=== PATIENT | male | born 1930 | race Caucasian/White ===

== ENCOUNTER 2016-10-25 17:08 | Emergency (ER) | payer OTHER ==
[~2016-10-25] VITALS: Ht 180.3 cm; Wt 86.2 kg
[~2016-10-25 17:08] MED LIST: LORTAB; LORTAB PO; MOBIC7.5 MG PO; OXYCONTIN10 MG; PAIN MED; VITAMIN D1000 UNI1 PO; VITAMINC500 PO
[2016-10-25] MEDS ORDERED: IBUPROFEN 600600 M1 PO (20:22)
[2016-10-25] MEDS ORDERED: KEFLEX500 MG PO (20:22)
[2016-10-25] MEDS ORDERED: NORCO 5-325 TA1 EACH PO (20:22)
[2016-10-25 20:46] VITALS: BP 140/81
== END 2016-10-25 20:48 | disposition home or self-care (01) ==
LOC: ER 17:08
DX: S62.631A Displaced fracture of distal phalanx of left index finger, initial encounter for closed fracture (principal); S61.221A Laceration with foreign body of left index finger without damage to nail, initial encounter; M13.812 Other specified arthritis, left shoulder; F10.99 Alcohol use, unspecified with unspecified alcohol-induced disorder; W29.3XXA Contact with powered garden and outdoor hand tools and machinery, initial encounter; Y93.89 Activity, other specified; Y92.89 Other specified places as the place of occurrence of the external cause; Y99.8 Other external cause status

== ENCOUNTER 2017-07-15 10:27 | Inpatient (IN) | payer OTHER ==
[~2017-07-15] VITALS: Ht 180.3 cm; Wt 82.6 kg
[2017-07-15] VITALS (28 sets, daily range): BP systolic 95–185; BP diastolic 60–117
--- NOTE | ~2017-07-15 | CATHLAB ---
[facility] [address] [place] [address] INVASIVE PROCEDURE REPORT Name: PEACE SHAW Room #: 236-P [facility]#: [id number] Admission: 07/15/17 Attend Phys: Uche Pichardo Discharge: Date of : 34 Date of Service: 07/17/172214 Report #: [id number] THIS REPORT FOR: //name// APPROVED REPORT Study performed: 07/15/2017 16:03:47 Patient Details Patient Status: In-Patient Room #: The patient is a 86 year-old male Event Personnel Jose De Jesus Hylton Health Promotion Coordinator, Cee Poon CVT Monitor, Jo Magallon RTR, April Sparrow Wes RN, Mary Rodas Monitor Procedures Performed Severino Access - R femoral vein Temporary Pacemaker Lead Inserted [id number] TPI under fluoroscopic guidance Indication Complete heart block Procedure Narrative The patient was brought emergently to the Cardiac Catheterization Laboratory and was prepped and draped in a sterile manner. The Right Groin^ was infiltrated with 1% Lidocaine subcutaneous anesthesia. A PINNACLE 5FR Sheath #[id number] sheath was inserted into the RFV 5F Sheath^. Coronary angiography was performed using coronary diagnostic catheters. The patient tolerated the procedure well and there were no complications associated with the procedure. There was no hematoma. The right coronary SPECT and draped in usual sterile manner. Utilizing a modified Seldinger technique 5 Algerian sheath was then inserted and secured utilizing fluoroscopic guidance a 5 Algerian pacing electrode was advanced into the right ventricular apex and capture and sensing thresholds were verified. The sterile sheath was then covered the pacing wire and secured in place. 4 x 4 OpSite to utilize. Patient tolerated procedure well. There were no complications. Fluoro Time: 14.00 minutes Dose: DAP 1906.80 cGycm2 81 mGy Conclusion 1. Successful in insertion of a transvenous pacemaker into the right [facility] [place] [address] INVASIVE PROCEDURE REPORT Name: VALERIAPEACE Miller Room #: 236-P [facility]#: [id number] Admission: 07/15/17 Attend Phys: Uche Pichardo Discharge: Date of : 34 Date of Service: 07/17/172214 Report #: [id number] ventricular apex 2. Capture threshold 0.2 mV 3. Final settings: A. Rate 80 demand B. MA 5 <ELECTRONICALLY SIGNED> By: Jose De Jesus Hylton MD 07/17/172214 14 14 Jose De Jesus Hylton MD /INF
--- NOTE | ~2017-07-15 | CATHLAB ---
[facility] [address] [place] [address] INVASIVE PROCEDURE REPORT Name: PEACE SHAW Room #: 247-P [facility]#: [id number] Admission: 07/15/17 Attend Phys: Uche Pichardo Discharge: 07/21/17 Date of : 34 Date of Service: 07/22/17 1850 Report #: [id number] THIS REPORT FOR: //name// APPROVED REPORT Study performed: 07/20/2017 10:14:42 Patient Status: In-Patient Room #: Event Personnel: Jose De Jesus Hylton Senior Policy Associate, Lucy Colon Monitor, Jo Magallon RTR, BENITA Scrub, Layton Chen RN Exam: Insertion of Dual ChamberICD Indications: 2:1 AV Block with ventricular fibrillation and new onset systolic heart failure The patient is a 86 year-old male with a history of new onset systolic heart failure and cardiac arrest due to ventricular fibrillation. Patient Info Last EF%: 25% Date: 07/14/17 NYHA Heart Class: III CHF: Acute Systolic Antiplatelet Therapy: none Reason for implant: Ventricular Fibrillation Intraoperative Conscious Sedation Sedation start time: 10:32 Case end Time: 11:55 Versed 3.5 mg demoral 50mg ivp Implanted Devices: St judes dual chamber icd with single coil icd lead. ( see chart for serial numbers ) Procedure After explaining the risks, benefits, and alternative options, informed consent was obtained from the patient. The patient was brought to the cardiac catheterization lab and the left chest and shoulder were prepped and draped in the usual fashion. During this case, Fluoroscopy and Iso-osmolar contrast were used for imaging. The subclavian vein was accessed after developing of a pocket with a modified seldinger technique. Utilizing a dual puncture technique 7 [facility] [place] [address] INVASIVE PROCEDURE REPORT Name: PEACE SHAW Room #: [address] [place] [address].#: [id number] Admission: 07/15/17 Attend Phys: Uche Pichardo Discharge: 07/21/17 Date of : 34 Date of Service: 07/22/17 1850 Report #: [id number] fr and 6 armenian sheaths were placed. achoring nonabsorbable sutures placed. RV lead positioned in interventricular septum were capture and sensing thresholds were obtained and noted in chart. underflouscopic visualization the arial lead was positioned in RA appendage. Both leads are active fixation. antibiotic solution was utilized to irrigate pocket, device leads and surgical field. Device was palced in pocket and 3 layer closure performed with deep two being 3-0 nonabsorbable in a running locking stitch. the skin was closed with 3-0 subcuticular suture. sterri strips, 4x4 and op site Complications The patient tolerated the procedure well and there were no complications associated with the procedure. Conclusion 1. Successful implantation of a St. Judes dual chamber ICD. <ELECTRONICALLY SIGNED> By: Jose De Jesus Hylton MD 07/22/171849 49 49 Jose De Jesus Hylton MD /INF
--- NOTE | ~2017-07-15 | EKG ---
[facility] [address] [place] [address] ELECTROCARDIOGRAM REPORT Name: PEACE SHAW Room #: 236-P ADM IN M.R.#: [id number] Admission: 07/15/17 Attend Phys: Uche Watkins Discharge: Date of : 32 Report #: [id number] THIS REPORT FOR: //name// [facility] Test Date: 2017-07-15 Test Time: 15:05:35 Pat Name: PEACE SHAW Department: Room: 236 P Gender: M Pbx Repairer: CHIARA : 1930 Requested By: Jose De Jesus Hylton Order Number: [id number] MD: Turner Henley Measurements Intervals [place] Rate: 70 P: 0 DE: QRS: -65 QRSD: 155 T: 76 QT: 391 QTc: 422 Interpretive Statements 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
--- NOTE | ~2017-07-15 | CATHLAB ---
[facility] [address] [place] [address] INVASIVE PROCEDURE REPORT Name: PEACE SHAW Room #: 236-P [facility].#: [id number] Admission: 07/15/17 Attend Phys: Uche Pichardo Discharge: Date of : 34 Date of Service: 07/17/172219 Report #: [id number] THIS REPORT FOR: //name// APPROVED REPORT Study performed: 07/17/2017 12:40:24 Patient Details Patient Status: In-Patient Room #: The patient is a 86 year-old male Event Personnel Jose De Jesus Hylton Piped Pocket Machine Operator, Lucy Colon Monitor, Jo Magallon RTR, April Sparrow Wes electronics instructor Performed Art Access - L femoral artery* 91613 Initial Mod Sed Same Phys/QHP Gr5y [id number] Left Heart Cath w/or w/o Coronaries [id number] [facility] Hemostasis with Manual pressure Indication Cardiomyopathy Procedure Narrative The patient was brought urgently to the Cardiac Catheterization Laboratory and was prepped and draped in a sterile manner. The Left Groin^ was infiltrated with 1% Lidocaine subcutaneous anesthesia. A PINNACLE 4FR Sheath #[id number] sheath was inserted into the LFA^. Coronary angiography was performed using coronary diagnostic catheters. The right coronary system was accessed and visualized with a JR 4 catheter. The left coronary system was accessed and visualized with a JL 4 catheter. The left ventricle was accessed and visualized with a Pigtail catheter. Left ventricular/Aortic Valve gradient assessed via catheter pullback. Hemostasis was obtained with manual pressure following sheath removal without any complications. The patient tolerated the procedure well and there were no complications associated with the procedure. There was no hematoma. Intraoperative Conscious Sedation Sedation start time: 14:02 Case end Time: 14:20 Versed 2.0 mg Fluoro Time: 2.41 minutes Dose: DAP 3527.50 cGycm2 454 mGy [facility] [place] [employer] [place] [address] INVASIVE PROCEDURE REPORT Name: PEACE SHAW Room #: 236-P [facility]#: [id number] Admission: 07/15/17 Attend Phys: Uche Pichardo Discharge: Date of : 34 Date of Service: 07/17/172219 Report #: [id number] Contrast Type and Amount: Omnipaque 55 ml Coronary Angiography The patient's coronary anatomy is right dominant. Diagnostic Cath Left Main Left main is essentially nonexistent with a wide trifurcating opening in the aorta LAD Moderate caliber type II vessel which has a band and a less than 50% lesion proximally. The vessel continues in the anterior interventricular sulcus giving rise to septal and diagonal branches free of high-grade disease in tapering towards the apex Diagonal 1 Small-caliber vessel of normal origin. Several mild proximal lesion but no high-grade obstructive blockages noted Circumflex Large-caliber vessel coursing the AV groove posteriorly giving rise to marginal branches all of which are free of high-grade disease Right Coronary Moderate caliber vessel normal origin proceeds in the AV groove posteriorly giving rise to small marginal branch them at the crux of the heart give us a posterior descending artery and a smaller posterior wall circulation which extended towards the apex R PDA Small to moderate caliber vessel coursing in the posterior interventricular sulcus free of high-grade disease Ramus Small-caliber vessel with luminal irregularities but no high-grade lesions noted Left Ventriculography The left ventricle is severely dilated in size with contractility. The left ventricular ejection fraction is estimated to be 20-25%. Left ventricular wall motion abnormalities are present. Hemodynamics The aortic pressure is 162/86 mmHg with a mean of 83 mmHg. The left ventricular pressure is 151/11 mmHg with a mean of mmHg. The left ventricular end diastolic pressure is 17 mmHg. Conclusion 1. Minimal coronary artery disease 2. Abnormal hemodynamics with elevated left ventricular end-diastolic pressures 3. Dilated left ventricle with severe decrease in systolic function [facility] [address] [place] [address] INVASIVE PROCEDURE REPORT Name: VALERIAPEACE Room #: 236-P [facility] M.R.#: [id number] Admission: 07/15/17 Attend Phys: Uche Pichardo Discharge: Date of : 34 Date of Service: 07/17/172219 Report #: [id number] Recommendations In view of the patient having ventricular fibrillation requiring resuscitation and ejection fraction less than 30% ICD implantation is indicated <ELECTRONICALLY SIGNED> By: Jose De Jesus Hylton MD 07/17/172219 19 19 Jose De Jesus Hylton MD /INF
--- NOTE | ~2017-07-15 | EKG ---
[address] [place] [address] ELECTROCARDIOGRAM REPORT Name: PEACE SHAW Room #: 236-P ADM IN M.R.#: [id number] Admission: 07/15/17 Attend Phys: Uche Watkins Discharge: Date of : 34 Report #: [id number] THIS REPORT FOR: //name// [facility] ED Test Date: 2017-07-15 Test Time: 10:48:48 Pat Name: PEACE SHAW Department: Room: [facility] Gender: M Banjo Repair Person: darcie : 1930 Requested By: Francie Boyce Order Number: [id number] MD: Turner Henley Measurements Intervals [place] Rate: 41 P: 0 DC: QRS: -63 QRSD: 164 T: 114 QT: 555 QTc: 459 Interpretive Statements Complete AV block with junctional escape Right bundle branch block, left anterior hemiblock Compared to ECG 08/01/2010 08:07:01 AV block, complete (third-degree) now present Left anterior fascicular block now present Right bundle-branch block now present Electronically Signed On 07-16-2017 8:43:41 CDT by Turner Henley [email or web address] <ELECTRONICALLY SIGNED> By: Turner Henley MD, [facility] 07/16/17 0843 1048 1048 Turner Henley MD, [facility] /EPI
--- NOTE | ~2017-07-15 | 2DMMODE ---
[facility] [address] [place] [address] 2 D/M-MODE ECHOCARDIOGRAM Name: VALERIAPEACE Paul Room #: 236-P [facility] IN ..#: [id number] Admission: 07/15/17 Attend Phys: Uche Pichardo Discharge: Date of : 34 Date of Service: 07/15/17 1500 Report #: [id number] THIS REPORT FOR: //name// APPROVED REPORT Study performed: 07/15/2017 13:48:39 EXAM: Comprehensive 2D, Doppler, and color-flow Echocardiogram Patient Location: ICU Room #: [facility] Status: routine BSA: 2.06 HR: 36 bpm BP: 160/70 mmHg Other Information Study Quality: Good Indications Congestive Heart Failure Bradycardia Dyspnea Cardiomyopathy Complete Heart Block 2D Dimensions RVDd: 37.88 mm LVEF(%): 24.58 (>50%) IVSd: 9.64 (7-11mm) LVOT Diam: 23.50 (18-24mm) LVDd: 62.74 mm PWd: 10.27 (7-11mm) Ascending Ao: 30.42 (22-36mm) LVDs: 55.47 (25-40mm) Aortic Root: 32.33 mm IVC: 28.00 mm [place]'s LVEF: 24.58 % Volumes Left Atrial Volume (Systole) Single Plane 4CH: 108.39 mL Single Plane 2CH: 94.25 mL LA ESV Index: 55.00 mL/m2 Aortic Valve AoV Peak Rey.: 1.60 m/s AO Peak Gr.: 10.21 mmHg LVOT Max P.48 mmHg LVOT Max V: 1.46 m/s NIMESH Vmax: 3.95 cm2 [facility] [address] [address] 2 D/M-MODE ECHOCARDIOGRAM Name: VALERIAPEACE Miller Room #: [address] [place] [address]#: [id number] Admission: 07/15/17 Attend Phys: Uche Pichardo Discharge: Date of : 34 Date of Service: 07/15/17 1500 Report #: [id number] Mitral Valve E/A Ratio: 0.5 MV Decel. Time: 301.87 ms MV E Max Rey.: 0.48 m/s MV A Rey.: 0.88 m/s MV PHT: 87.54 ms IVRT: 166.09 ms Pulmonary Valve PV Peak Rey.: 0.97 m/s PV Peak Gr.: 3.81 mmHg Pulmonary Vein P Vein S: 1.10 m/s P Vein A: 0.25 m/s P Vein D: 1.01 m/s P Vein A Dur.: 143.0 msec P Vein S/D Ratio: 1.09 Tricuspid Valve TR Peak Rey.: 3.13 m/s TR Peak Gr.: 39.14 mmHg PA Pressure: 54.00 mmHg Left Ventricle Left ventricle is dilated. There is normal left ventricular wall thickness. Left ventricular ejection fraction is severely decreased. LVEF is 20-25%. Grade I - abnormal relaxation pattern. Right Ventricle The right ventricle is normal size. The right ventricular systolic function is normal. Atria Left atrium is dilated. Right atrium is dilated. Aortic Valve The aortic valve is normal in structure. Aortic valve is calcified. Trace to mild aortic regurgitation. There is no aortic valvular stenosis. Mitral Valve The mitral valve is normal in structure. Moderate mitral regurgitation. No evidence of mitral valve stenosis. Tricuspid Valve The tricuspid valve is normal in structure. There is mild tricuspid regurgitation. Estimated PAP 54 mmHg. There [place] [address] 2 D/M-MODE ECHOCARDIOGRAM Name: PEACE SHAW Room #: 236-P [facility] IN ..#: [id number] Admission: 07/15/17 Attend Phys: Uche Pichardo Discharge: Date of : 34 Date of Service: 07/15/17 1500 Report #: [id number] Pulmonic Valve The pulmonary valve is normal in structure. Trace pulmonic regurgitation. Great Vessels The aortic root is normal in size. The inferior vena cava is dilated with no inspiratory collapse. Pericardium There is no pericardial effusion. <Conclusion> Left ventricle is dilated. Left ventricular ejection fraction is severely decreased. LVEF is 20-25%. Left atrium is dilated. Right atrium is dilated. The aortic valve is normal in structure. Aortic valve is calcified. Trace to mild aortic regurgitation. The mitral valve is normal in structure. Moderate mitral regurgitation. The tricuspid valve is normal in structure. There is mild tricuspid regurgitation. Estimated PAP 54 mmHg. There is moderate pulmonary hypertension. The pulmonary valve is normal in structure. Trace pulmonic regurgitation. There is no pericardial effusion. <ELECTRONICALLY SIGNED> By: Jose De Jesus Hylton MD 07/15/17 1500 1500 1500 Jose De Jesus Hylton MD /INF
[~2017-07-15 10:27] MED LIST changes: +IBUPROFEN 600600 M1 PO; +KEFLEX500 MG PO; +NORCO 5-325 TA1 EACH PO
[2017-07-15 10:59] LABS: ABSOLUTE NEUTROPHILS 7.1 thou/uL (1.4-8.2); BASOPHILS 0.5 % (0.0-2.0); EOSINOPHILS 0.5 % (0.0-3.0); HEMATOCRIT 41.8 % (42.0-52.0); HEMOGLOBIN 13.8 gm/dL (14.0-18.0); LYMPHOCYTES 13.1 % (24.0-44.0); MCH 30.3 pg (26.0-34.0); MCHC 32.9 g/dL (28.0-37.0); MCV 92.1 fL (80.0-100.0); MONOCYTES 8.5 % (1.0-8.0); PLATELET COUNT 263 thou/uL (150-400); POLYS 77.4 % (36.0-66.0); RBC 4.53 mil/uL (4.50-6.00); RDW 15.7 % (10.5-14.5); WBC 9.1 thou/uL (4.0-11.0)
[2017-07-15 11:13] LABS: ANION GAP 5 mmol/L (7-16); BUN 27 mg/dL (7-18); CALCIUM 8.6 mg/dL (8.5-10.1); CHLORIDE 110 mmol/L (98-107); CO2 26 mmol/L (21-32); GLUCOSE 130 mg/dL (74-106); POTASSIUM 4.2 mmol/L (3.5-5.1); SODIUM 141 mmol/L (136-145)
[2017-07-15 11:22] LABS: TROPONIN-I < 0.04 ng/mL (<0.06)
[2017-07-15 12:12] LABS: CHOLESTEROL 132 mg/dL (<200); HDL CHOLESTEROL 42 mg/dL (>40); LDL CHOLESTEROL 81 mg/dL (<100); TC:HDL 3.1 Ratio (Not establshd); TRIGLYCERIDE 48 mg/dL (<150); VLDL 10 mg/dL (<40)
[2017-07-15 12:18] LABS: APTT 24.8 Seconds (24.5-32.8); INR 1.1; PROTIME 11.6 Seconds (9.3-11.4)
[2017-07-15] MEDS ORDERED: FINASTERIDE5 MG PO (20:13)
[2017-07-15] MEDS ORDERED: MOBIC7.5 MG PO (20:16)
[2017-07-15] MEDS ORDERED: PRESERVISION A1 EAC2 PO (20:19)
[2017-07-15] MEDS ORDERED: XALATAN2.5 ML OPHTHALMIC (20:21)
[2017-07-15] MEDS ORDERED: DORZOLAMIDE HCL10 ML OPHTHALMIC (20:22)
[2017-07-15] MEDS ORDERED: BRIMONIDINE OPHTHALMIC (20:26)
[2017-07-16] VITALS (44 sets, daily range): BP systolic 116–161; BP diastolic 69–140
[2017-07-16 05:55] LABS: ALBUMIN 2.7 g/dL (3.4-5.0); CALCIUM 8.2 mg/dL (8.5-10.1); CREATININE 1.1 mg/dL (0.7-1.3); PHOSPHORUS 4.7 mg/dL (2.5-4.9); POTASSIUM 3.4 mmol/L (3.5-5.1)
[2017-07-17] VITALS (53 sets, daily range): BP systolic 97–164; BP diastolic 40–136
[2017-07-17 04:48] LABS: ALBUMIN 2.6 g/dL (3.4-5.0); CALCIUM 8.1 mg/dL (8.5-10.1); CREATININE 1.1 mg/dL (0.7-1.3); PHOSPHORUS 3.6 mg/dL (2.5-4.9)
[2017-07-17 04:57] LABS: POTASSIUM 4.5 mmol/L (3.5-5.1)
[2017-07-18] VITALS (24 sets, daily range): BP systolic 115–154; BP diastolic 57–99
[2017-07-18 04:46] LABS: ALBUMIN 2.4 g/dL (3.4-5.0); CALCIUM 8.1 mg/dL (8.5-10.1); PHOSPHORUS 3.6 mg/dL (2.5-4.9); POTASSIUM 4.3 mmol/L (3.5-5.1)
[2017-07-18 07:14] LABS: HEMATOCRIT 42.9 % (42.0-52.0); HEMOGLOBIN 14.4 gm/dL (14.0-18.0); MCH 30.6 pg (26.0-34.0); MCHC 33.7 g/dL (28.0-37.0); MCV 90.7 fL (80.0-100.0); RBC 4.73 mil/uL (4.50-6.00); RDW 15.1 % (10.5-14.5); WBC 10.9 thou/uL (4.0-11.0)
[2017-07-18 07:15] LABS: CALCIUM 8.2 mg/dL (8.5-10.1); POTASSIUM 4.4 mmol/L (3.5-5.1)
[2017-07-18 07:27] LABS: APTT 28.8 Seconds (24.5-32.8); INR 1.1; PROTIME 11.5 Seconds (9.3-11.4)
[2017-07-19] VITALS (24 sets, daily range): BP systolic 103–149; BP diastolic 64–119
[2017-07-19 12:37] LABS: ABSOLUTE NEUTROPHILS 7.1 thou/uL (1.4-8.2); BASOPHILS 0.2 % (0.0-2.0); EOSINOPHILS 1.2 % (0.0-3.0); HEMOGLOBIN 16.2 gm/dL (14.0-18.0); LYMPHOCYTES 13.9 % (24.0-44.0); MCH 30.8 pg (26.0-34.0); MCHC 33.8 g/dL (28.0-37.0); MCV 91.2 fL (80.0-100.0); MONOCYTES 11.1 % (1.0-8.0); PLATELET COUNT 280 thou/uL (150-400); POLYS 73.6 % (36.0-66.0); RBC 5.26 mil/uL (4.50-6.00); RDW 15.4 % (10.5-14.5); WBC 9.7 thou/uL (4.0-11.0)
[2017-07-19 12:44] LABS: CALCIUM 8.8 mg/dL (8.5-10.1); CREATININE 0.9 mg/dL (0.7-1.3); POTASSIUM 3.9 mmol/L (3.5-5.1)
[2017-07-20] VITALS (27 sets, daily range): BP systolic 112–167; BP diastolic 52–96
[2017-07-20 04:29] LABS: HEMATOCRIT 43.8 % (42.0-52.0); HEMOGLOBIN 14.8 gm/dL (14.0-18.0); MCH 30.5 pg (26.0-34.0); MCHC 33.8 g/dL (28.0-37.0); MCV 90.1 fL (80.0-100.0); PLATELET COUNT 260 thou/uL (150-400); RBC 4.86 mil/uL (4.50-6.00); RDW 15.1 % (10.5-14.5); WBC 9.8 thou/uL (4.0-11.0)
[2017-07-20 04:34] LABS: ALBUMIN 2.4 g/dL (3.4-5.0); CALCIUM 8.1 mg/dL (8.5-10.1); CREATININE 0.8 mg/dL (0.7-1.3); PHOSPHORUS 4.1 mg/dL (2.5-4.9); POTASSIUM 4.2 mmol/L (3.5-5.1)
[2017-07-20 04:59] LABS: APTT 28.8 Seconds (24.5-32.8); INR 1.1; PROTIME 11.3 Seconds (9.3-11.4)
[2017-07-20 08:05] LABS: ABSOLUTE NEUTROPHILS 7.3 thou/uL (1.4-8.2); ANISOCYTOSIS 1+; OVALOCYTES 1+
[2017-07-21] VITALS (16 sets, daily range): BP systolic 94–154; BP diastolic 52–121
[2017-07-21] MEDS ORDERED: LISINOPRIL10 MG PO (08:57)
[2017-07-21] MEDS ORDERED: COREG6.25 MG PO (08:57)
[2017-07-21] MEDS ORDERED: ACETAMINOPHEN325 M1 PO (08:58)
[2017-07-21] MEDS ORDERED: ASPIR 8181 MG PO (09:00)
[2017-07-21] MEDS ORDERED: LASIX 40 MG TAB40 M2 PO (09:00)
== END 2017-07-21 15:47 | disposition home health service (06) | DRG 242 ==
LOC: ER 10:27 → ICU 11:40 → EROBS 11:40 → ICU 12:32 → ENTRNSPT 07-21 15:30 → EDTRNSPTSTS 07-21 15:33 → ICU 07-21 15:47
PROVIDERS: Emergency Medicine; Hospitalist; Internal Medicine
DX: I11.0 Hypertensive heart disease with heart failure (principal); E43 Unspecified severe protein-calorie malnutrition; I49.01 Ventricular fibrillation; I44.2 Atrioventricular block, complete; I47.2 Ventricular tachycardia; I50.21 Acute systolic (congestive) heart failure; I42.9 Cardiomyopathy, unspecified; M19.012 Primary osteoarthritis, left shoulder; Z90.49 Acquired absence of other specified parts of digestive tract; Z79.899 Other long term (current) drug therapy; Z68.25 Body mass index [BMI] 25.0-25.9, adult

== ENCOUNTER → 2018-03-24 | Outpatient (CLI) | payer OTHER ==
[~2018-03-24] MED LIST changes: +ACETAMINOPHEN325 M1 PO; +ASPIR 8181 MG PO; +BRIMONIDINE OPHTHALMIC; +COREG6.25 MG PO; +DORZOLAMIDE HCL10 ML OPHTHALMIC; +FINASTERIDE5 MG PO; +LASIX 40 MG TAB40 M2 PO; +LISINOPRIL10 MG PO; +PRESERVISION A1 EAC2 PO; +XALATAN2.5 ML OPHTHALMIC
--- NOTE | 2018-03-24 10:27 | 2DMMODE ---
[facility] [place] [address] 2 D/M-MODE ECHOCARDIOGRAM Name: PEACE SHAW Room #: REG [facility]#: [id number] Admission: 03/24/18 Attend Phys: Jose De Jesus Nava Discharge: Date of : 34 Date of Service: 03/24/18 1027 Report #: [id number] THIS REPORT FOR: //name// APPROVED REPORT Study performed: 03/24/2018 09:11:46 EXAM: Comprehensive 2D, Doppler, and color-flow Echocardiogram Patient Location: Out-Patient Room #: Echo lab 2 Status: routine BSA: 1.97 HR: 60 bpm BP: 100/58 mmHg Rhythm: NSR Other Information Study Quality: Adequate Indications Pacemaker CAD 2D Dimensions RVDd: 45.00 mm IVSd: 9.20 (7-11mm) LVOT Diam: 21.60 (18-24mm) LVDd: 54.17 mm PWd: 9.16 (7-11mm) Ascending Ao: 33.31 (22-36mm) LVDs: 40.20 (25-40mm) Aortic Root: 35.30 mm IVC: 12.00 mm Volumes Left Atrial Volume (Systole) Single Plane 4CH: 27.65 mL Single Plane 2CH: 50.20 mL LA ESV Index: 25.00 mL/m2 Aortic Valve AoV Peak Rey.: 1.10 m/s AO Peak Gr.: 4.88 mmHg LVOT Max P.28 mmHg LVOT Max V: 0.90 m/s NIMESH Vmax: 3.00 cm2 Mitral Valve E/A Ratio: 0.7 MV Decel. Time: 291.27 ms [facility] [address] [place] [address] 2 D/M-MODE ECHOCARDIOGRAM Name: PEACE SHAW Room #: REG [facility]#: [id number] Admission: 03/24/18 Attend Phys: Jose De Jesus Nava Discharge: Date of : 34 Date of Service: 03/24/18 1027 Report #: [id number] MV E Max Rey.: 0.47 m/s MV A Rey.: 0.66 m/s MV PHT: 84.47 ms IVRT: 207.61 ms Pulmonary Valve PV Peak Rey.: 0.84 m/s PV Peak Gr.: 2.82 mmHg Pulmonary Vein P Vein S: 0.27 m/s P Vein A: 0.25 m/s P Vein D: 0.19 m/s P Vein A Dur.: 143.0 msec P Vein S/D Ratio: 1.42 Tricuspid Valve TR Peak Rey.: 2.50 m/s TR Peak Gr.: 25.10 mmHg PA Pressure: 30.00 mmHg Left Ventricle The left ventricle is normal size. Paradoxical septal motion consistent with paced rhythm. There is normal left ventricular wall thickness. Left ventricular systolic function is mildly decreased. LVEF is 45-50%. Grade I - abnormal relaxation pattern. Right Ventricle Right ventricle is dilated. Right ventricular systolic function is grossly normal. Device lead is present in the right ventricle. Atria Left atrium is at the upper limits of normal. Right atrium is dilated. Device lead is present in the right atrium. Aortic Valve The aortic valve is normal in structure. Trace aortic regurgitation. There is no aortic valvular stenosis. Mitral Valve The mitral valve is normal in structure. Mild mitral regurgitation. No evidence of mitral valve stenosis. Tricuspid Valve The tricuspid valve is normal in structure. There is mild tricuspid regurgitation. Estimated PAP 30 mmHg. There is no pulmonary hypertension. Pulmonic Valve [address] [address] 2 D/M-MODE ECHOCARDIOGRAM Name: VALERIAPEACE THIAGO Room #: REG [facility]#: [id number] Admission: 03/24/18 Attend Phys: Jose De Jesus Nava Discharge: Date of : 34 Date of Service: 03/24/18 1027 Report #: [id number] The pulmonary valve is normal in structure. Trace pulmonic regurgitation. Great Vessels The aortic root is normal in size. IVC is normal in size and collapses >50% with inspiration. Pericardium There is no pericardial effusion. <Conclusion> The left ventricle is normal size. LVEF is 45-50%. Paradoxical septal motion consistent with paced rhythm. Right ventricle is dilated. Right ventricular systolic function is grossly normal. Device lead is present in the right ventricle. Left atrium is at the upper limits of normal. Right atrium is dilated. Device lead is present in the right atrium. The aortic valve is normal in structure. Trace aortic regurgitation. The mitral valve is normal in structure. Mild mitral regurgitation. The tricuspid valve is normal in structure. There is mild tricuspid regurgitation. Estimated PAP 30 mmHg. There is no pulmonary hypertension. The pulmonary valve is normal in structure. Trace pulmonic regurgitation. There is no pericardial effusion. <ELECTRONICALLY SIGNED> By: Jose De Jesus Hylton MD 03/24/18 1027 1027 1027 Jose De Jesus Hylton MD /INF
== END ==
LOC: CV 08:12
DX: I08.1 Rheumatic disorders of both mitral and tricuspid valves (principal); I25.10 Atherosclerotic heart disease of native coronary artery without angina pectoris; I50.9 Heart failure, unspecified; Z95.0 Presence of cardiac pacemaker

== ENCOUNTER → 2018-08-18 | Outpatient (CLI) | payer OTHER | LOC: RAD 13:08 | DX: M19.011 Primary osteoarthritis, right shoulder (principal) ==

== ENCOUNTER → 2018-09-29 | Outpatient (CLI) | payer OTHER ==
--- NOTE | 2018-09-29 11:58 | 2DMMODE ---
[facility] [place] [address] 2 D/M-MODE ECHOCARDIOGRAM Name: PEACE SHAW Room #: REG Lakshmi#: [id number] ������������� Admission: 09/29/18 ������������� Attend Phys: Jose De Jesus Nava Discharge: ��� ������������� ��� Date of : 34 Date of Service: 09/29/18 1158 �� Report #: [id number] �������� ��������������������������������������������[id number] THIS REPORT FOR: //name// APPROVED REPORT Study performed: 09/29/2018 08:58:13 EXAM: Comprehensive 2D, Doppler, and color-flow Echocardiogram Patient Location: Out-Patient Status: routine BSA: 2.03 HR: 65 bpm Rhythm: NSR Other Information Study Quality: Adequate Indications ICD, cardiomyopathy. 2D Dimensions RVDd: 42.26 mm IVSd: 10.29 (7-11mm) LVOT Diam: 23.23 (18-24mm) LVDd: 46.60 mm PWd: 10.76 (7-11mm) Ascending Ao: 38.65 (22-36mm) LVDs: 31.97 (25-40mm) Aortic Root: 38.97 mm Volumes Left Atrial Volume (Systole) Single Plane 4CH: 40.14 mL Single Plane 2CH: 60.02 mL LA ESV Index: 27.00 mL/m2 Aortic Valve AoV Peak Rey.: 1.26 m/s AO Peak Gr.: 6.33 mmHg LVOT Max P.93 mmHg LVOT Max V: 0.99 m/s NIMESH Vmax: 3.34 cm2 Mitral Valve E/A Ratio: 0.6 MV Decel. Time: 320.07 ms MV E Max Rey.: 0.46 m/s [facility] [address] [place] [address] 2 D/M-MODE ECHOCARDIOGRAM Name: VALERIAPEACE DAS Room #: [facility] [id number] ������������� Admission: 09/29/18 ������������� Attend Phys: Jose De Jesus Nava Discharge: ��� ������������� ��� Date of : 34 Date of Service: 09/29/18 1158 �� Report #: [id number] �������� ��������������������������������������������[id number] MV A Rey.: 0.73 m/s MV PHT: 92.82 ms IVRT: 110.73 ms Pulmonary Valve PV Peak Rey.: 0.97 m/s PV Peak Gr.: 3.78 mmHg Pulmonary Vein P Vein S: 0.81 m/s P Vein D: 0.34 m/s P Vein S/D Ratio: 2.38 Tricuspid Valve TR Peak Rey.: 2.57 m/s RAP Estimate: 5.00 mmHg TR Peak Gr.: 26.36 mmHg PA Pressure: 31.00 mmHg Left Ventricle The left ventricle is normal size. There is normal left ventricular wall thickness. Left ventricular systolic function is mildly decreased. LVEF is 45-50%. Mild diastolic dysfunction is present (impaired relaxation pattern). Right Ventricle Right ventricle is mildly dilated. The right ventricular systolic function is normal. Pacemaker lead is present in the right ventricle. Atria The left atrium size is normal. Right atrium is mild to moderately dilated. Aortic Valve The aortic valve is normal in structure. Trace aortic regurgitation. There is no aortic valvular stenosis. Mitral Valve The mitral valve is normal in structure. Mild mitral regurgitation. Tricuspid Valve The tricuspid valve is normal in structure. Moderate tricuspid regurgitation. Estimated PAP is 30-35mmHg. Pulmonic Valve Pulmonic valve is not well visualized. Mild pulmonic regurgitation. [facility] [place] [address] 2 D/M-MODE ECHOCARDIOGRAM Name: VALERIAPEACE DAS Room #: REG Lakshmi#: [id number] ������������� Admission: 09/29/18 ������������� Attend Phys: Jose De Jesus Nava Discharge: ��� ������������� ��� Date of : 34 Date of Service: 09/29/18 1158 �� Report #: [id number] �������� ��������������������������������������������[id number] [employer] The aortic root and ascending arota are mildly dilated at 3.9cm. IVC is normal in size and collapses >50% with inspiration. Pericardium There is no pericardial effusion. <Conclusion> The left ventricle is normal size. LVEF is 45-50%. Right ventricle is mildly dilated. Pacemaker lead is present in the right ventricle. Right atrium is mild to moderately dilated. The aortic valve is normal in structure. Trace aortic regurgitation. The mitral valve is normal in structure. Mild mitral regurgitation. The tricuspid valve is normal in structure. Moderate tricuspid regurgitation. Estimated PAP is 30-35mmHg. Pulmonic valve is not well visualized. Mild pulmonic regurgitation. There is no pericardial effusion. ��������������������������������������������� <ELECTRONICALLY SIGNED> ���������������������������������������� By: Jose De Jesus Hylton MD ��������������������������������������������� 09/29/18 1158 1158 1158 Jose De Jesus Hylton MD /INF
== END ==
LOC: CATH 07:31 → CV 07:32
DX: I08.8 Other rheumatic multiple valve diseases (principal); Z95.810 Presence of automatic (implantable) cardiac defibrillator

== ENCOUNTER 2019-01-22 14:55 | Emergency (ER) | payer OTHER ==
[~2019-01-22] VITALS: Ht 182.9 cm; Wt 89.8 kg
[2019-01-22] MEDS ORDERED: KEFLEX500 M1 PO (18:14)
[2019-01-22] MEDS ORDERED: TRAMADOL 50 MG50 MG PO (18:14)
[2019-01-22 18:22] VITALS: BP 125/64
== END 2019-01-22 18:22 | disposition home or self-care (01) ==
LOC: ER 14:55
DX: S02.2XXA Fracture of nasal bones, initial encounter for closed fracture (principal); S01.21XA Laceration without foreign body of nose, initial encounter; M19.012 Primary osteoarthritis, left shoulder; W01.0XXA Fall on same level from slipping, tripping and stumbling without subsequent striking against object, initial encounter; Y93.89 Activity, other specified; Y92.89 Other specified places as the place of occurrence of the external cause; Y99.8 Other external cause status

== ENCOUNTER → 2019-04-15 | Outpatient (CLI) | payer OTHER ==
[~2019-04-15] MED LIST changes: +KEFLEX500 M1 PO; +TRAMADOL 50 MG50 MG PO
== END ==
LOC: SJCVC 13:50
DX: Z45.02 Encounter for adjustment and management of automatic implantable cardiac defibrillator (principal); I44.0 Atrioventricular block, first degree; R94.31 Abnormal electrocardiogram [ECG] [EKG]; I42.0 Dilated cardiomyopathy; I11.0 Hypertensive heart disease with heart failure; I50.22 Chronic systolic (congestive) heart failure; I48.91 Unspecified atrial fibrillation; I95.1 Orthostatic hypotension; E78.5 Hyperlipidemia, unspecified; I25.2 Old myocardial infarction; Z95.810 Presence of automatic (implantable) cardiac defibrillator; Z79.82 Long term (current) use of aspirin; Z79.899 Other long term (current) drug therapy

== ENCOUNTER 2019-05-23 18:46 | Emergency (ER) | payer OTHER ==
[~2019-05-23] VITALS: Ht 177.8 cm; Wt 81.7 kg
[2019-05-23] MEDS ORDERED: KEFLEX500 M1 PO (20:25)
[2019-05-23 20:47] VITALS: BP 114/59
== END 2019-05-23 20:47 | disposition home or self-care (01) ==
LOC: ER 18:46
DX: S61.012A Laceration without foreign body of left thumb without damage to nail, initial encounter (principal); W27.8XXA Contact with other nonpowered hand tool, initial encounter; Y93.89 Activity, other specified; Y92.89 Other specified places as the place of occurrence of the external cause; Y99.8 Other external cause status

== ENCOUNTER → 2019-10-07 | Outpatient (CLI) | payer OTHER ==
[~2019-10-07] VITALS: Ht 180.3 cm; Wt 81.6 kg
[~2019-10-07] MED LIST changes: +ASA81BEC PO; +ATORVASTATIN CA20 MG PO; +CARVEDILOL25 MG PO; +LISINOPRIL5 MG PO; +SPIRONOLACTONE25 MG PO; +SULINDAC 150 M150 MG PO; +VITAMIN B-125000 MC2 PO
--- NOTE | ~2019-10-07 | P ---
[facility] [place] [address] PROCEDURE REPORT Name: PEACE SHAW Room #: REG OSCAR Martins#: [id number] Admission: 10/07/19 Attend Phys: Dillan Denney Discharge: Date of : 34 Report #: [id number] THIS REPORT FOR: cc: Thong Keys,Dillan Warren MD ~ CC: Dillan Keys MD DATE OF SERVICE: 10/12/2019 PROCEDURE PERFORMED: Colonoscopy with polypectomies. HISTORY OF PRESENT ILLNESS: The patient is an 88-year-old male with recent Hemoccult positive stool. He denies any obvious bright red blood per rectum or melena. The patient underwent a colonoscopy by myself in July of 2009. At that time, he had multiple adenomatous polyps that were removed ____ in particular was a large at that time. Most of it was removed, 75% at that time due to the large base. 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 I recommended the patient see Dr. Morrow for possible surgical resection; however, the patient never did followup. He also never had another endoscopy apparently. Plan is for colonoscopy. DESCRIPTION OF PROCEDURE: The risks and benefits of the procedure were explained to the patient, those risks including but not limited to bleeding, perforation and the risk of sedation. He understood these risks and gave informed consent. Sedation was given using propofol per anesthesia. Next, a digital rectal exam was initially performed, which was normal. Next, using a standard Olympus colonoscope, the scope was placed in the patient's anus and advanced under direct vision to the cecum. The overall prep was good. The cecum and ileocecal valve were normal in appearance. The ascending and transverse colon were normal. In the descending colon, there was a 6 mm sessile polyp. This was removed by a snare cautery. Multiple diverticula were noted in the descending and sigmoid colon. In the sigmoid colon, at 25 cm, a large adenomatous polyp was noted. I was able to remove this in a piecemeal fashion. I then tattooed the edges of the polypectomy site. In the rectum, 2 small 4-5 mm sessile polyps were noted. These were removed with cold forceps. On retroflexion, no abnormalities were noted other than the small internal hemorrhoids. The scope was then withdrawn and the procedure terminated. The patient tolerated the procedure well. IMPRESSION: 1. Large adenomatous type polyp at 25 cm, suspect this is the same site from [address] [address] PROCEDURE REPORT Name: PEACE SHAW Room #: MERLINE Martins#: [id number] Admission: 10/07/19 Attend Phys: Dillan Denney Discharge: Date of : 34 Report #: [id number] years ago. I was able to remove this today and the edges were tattooed. No active bleeding, but obviously could cause Hemoccult positive stools. 2. Other smaller colonic polyps as described above. 3. Sigmoid diverticulosis. 4. Internal hemorrhoids. RECOMMENDATIONS: Await biopsy results. Thank you for allowing me to participate in his care. By: [id number] Dillan Perez MD /nt
--- NOTE | ~2019-10-07 | P ---
[facility] [place] [address] PROCEDURE REPORT Name: PEACE SHAW Room #: REG OSCAR Martins#: [id number] Admission: 10/07/19 Attend Phys: Dillan Denney Discharge: Date of : 34 Report #: [id number] THIS REPORT FOR: cc: Thong Keys,Dillan Warren MD ~ CC: Dillan Keys MD DATE OF SERVICE: 10/12/2019 PROCEDURE PERFORMED: Upper endoscopy with biopsies. HISTORY OF PRESENT ILLNESS: The patient is an 89-year-old male with Hemoccult-positive stools. He denies any obvious bright red blood per rectum or melena. He denies any abdominal pain. Plan is for EGD and colonoscopy today. DESCRIPTION OF PROCEDURE: The risks and benefits of the procedure were explained to the patient, those risks including but not limited to bleeding, perforation and the risk of sedation. He understood these risks and gave informed consent. Sedation was given using propofol per anesthesia. Next, using a standard Olympus upper endoscope, the scope was placed in the patient's mouth and advanced under direct vision through the esophagus, stomach and into the second portion of the duodenum. The esophagus was normal throughout. The GE junction was normal. Overall, the gastric mucosa was normal. The pylorus was normal and patent. The duodenal bulb was normal; however, there were multiple clean white based ulcers in the first and second portion of the duodenum. No evidence of bleeding. No AVMs were noted. The scope was then brought back up into the patient's stomach and biopsies were obtained to rule out the possibility of H. pylori. The scope was then withdrawn and the procedure terminated. The patient tolerated the procedure well. IMPRESSION: 1. Multiple duodenal ulcers, nonbleeding. Possible source of heme-positive stools, however. 2. Otherwise, normal upper endoscopy. RECOMMENDATIONS: 1. Await biopsy results. 2. Recommend daily PPI therapy. 3. We will proceed with colonoscopy next today. [facility] [address] [place] [address] PROCEDURE REPORT Name: PEACE SHAW Room #: REG OSCAR Martins#: [id number] Admission: 10/07/19 Attend Phys: Dillan Denney Discharge: Date of : 34 Report #: [id number] Thank you for allowing me to participate in his care. By: 1118 [id number] Dillan Perez MD /nt
== END ==
LOC: LAB 08:00 → GI 10-12 10:04
PROVIDERS: ATTEND Specialist
DX: Z01.812 Encounter for preprocedural laboratory examination (principal); Z11.59 Encounter for screening for other viral diseases

== ENCOUNTER → 2019-10-11 | Outpatient (CLI) | payer OTHER | LOC: SJCVCIMAG 08:00 | PROVIDERS: ATTEND Internal Medicine | DX: I08.3 Combined rheumatic disorders of mitral, aortic and tricuspid valves (principal); I27.20 Pulmonary hypertension, unspecified; R94.31 Abnormal electrocardiogram [ECG] [EKG]; I45.4 Nonspecific intraventricular block; I42.0 Dilated cardiomyopathy; I11.0 Hypertensive heart disease with heart failure; I50.22 Chronic systolic (congestive) heart failure; E78.5 Hyperlipidemia, unspecified; I25.2 Old myocardial infarction; Z95.0 Presence of cardiac pacemaker; Z79.899 Other long term (current) drug therapy | CPT/HCPCS: 62110; 62900 ==

== ENCOUNTER → 2020-10-15 | Outpatient (CLI) | payer OTHER | LOC: SJCVC 09:03 | PROVIDERS: ATTEND Internal Medicine | DX: R06.09 Other forms of dyspnea (principal); I42.0 Dilated cardiomyopathy; I50.20 Unspecified systolic (congestive) heart failure; E78.5 Hyperlipidemia, unspecified; Z95.810 Presence of automatic (implantable) cardiac defibrillator; Z79.82 Long term (current) use of aspirin; Z79.899 Other long term (current) drug therapy; Z72.89 Other problems related to lifestyle ==

== ENCOUNTER → 2020-10-26 | Outpatient (CLI) | payer OTHER | LOC: SJCVCIMAG 11:07 | PROVIDERS: ATTEND Internal Medicine | DX: I07.1 Rheumatic tricuspid insufficiency (principal); R06.00 Dyspnea, unspecified; I11.0 Hypertensive heart disease with heart failure; I50.9 Heart failure, unspecified; I25.5 Ischemic cardiomyopathy ==